=== PATIENT | male | born 2000 | race Caucasian/White ===

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

== ENCOUNTER 2023-05-29 19:46 | Emergency (ER) | payer OTHER, SELFPAY ==
[2023-05-29 19:47] VITALS: BP 135/87; PULSE 121; RESP 16; TEMP 36.6; BMI 23.2
[2023-05-29] MEDS: Penicillin Vk 250 MG Tablet 500 MG PO (20:16)
--- NOTE | 2023-05-29 20:22 | EX.ED.DYSGE1 ---
HPI <MARIA G Cifuentes - Last Filed: 05/29/23 20:38> History of Present Illness Chief Complaint: Dental PFSH <MARIA G Cifuentes - Last Filed: 05/29/23 20:38> PFSH Medical History no medical history Home Medications dicyclomine 10 mg capsule 10 mg PO DAILY 09/03/19 [History Last Taken Unknown] prednisone 10 mg tablet 10 mg PO UD #33 tabs 09/03/19 [Rx Last Taken Unknown] naproxen 500 mg tablet 500 mg PO BID PRN pain #14 tabs 05/29/23 [Rx Last Taken Unknown] penicillin V potassium 500 mg tablet 500 mg PO 4X/DAY #39 tabs 05/29/23 [Rx Last Taken Unknown] Allergy/AdvReac Type Severity Reaction Status Date / Time No Known Allergies Allergy Verified 05/29/23 19:47 Surgical History no surgical history Social History Smoking Status: Never smoker ROS <MARIA G Cifuentes - Last Filed: 05/29/23 20:38> ROS ED Constitutional Constitutional ED: Denies chills or fever(s) Cardiovascular Cardiovascular: Denies chest pain Respiratory/Chest Respiratory/Chest: Denies cough or dyspnea Gastrointestinal Gastrointestinal: Denies abdominal pain, nausea or vomiting Musculoskeletal Musculoskeletal: Denies arthralgias or myalgias Integumentary Denies rash Neurologic Neurologic: Denies weakness EXAM <MARIA G Cifuentes - Last Filed: 05/29/23 20:38> Physical Exam Const Vital Signs: 05/29/23 19:47 05/29/23 19:47 Temperature 97.8 F 97.8 F Temperature Source Temporal Temporal Pulse Rate 121 H 121 H Respiratory Rate 16 16 Blood Pressure 135/87 H 135/87 H Blood Pressure Mean 103 103 Positive well nourished, well developed and no apparent distress General Appearance ED: well developed HEENT Reports normocephalic, head/scalp atraumatic and TM's clear HEENT Narrative: Obvious dental cavity to the right mandibular second molar, no dental abscess, no trismus, uvula midline, posterior pharynx unremarkable Tympanic Membrane ED: Yes TM's clear bilateral Mouth ED: Yes moist mucous membranes normal Eyes PERRL and EOMs intact bilaterally Neck full ROM and supple Chest Wall inspection of chest normal Resp normal respiratory effort and clear to auscultation bilaterally Cardio regular rate and regular rhythm GI soft to palpation, non-tender, non-distended and no masses Back/Spine normal ROM and normal to inspection Extremity normal to inspection and full ROM Neuro oriented x3, CN's II-XII intact bilaterally, moves all extremities, no focal motor deficits and no sensory deficits noted Sensorium / Orientation: awake and alert Psych mental status grossly normal and thought process normal Skin no rashes or lesions noted and no wounds <Dr. Alberto Suazo MD - Last Filed: 05/29/23 22:46> Physical Exam Const Vital Signs: 05/29/23 19:47 05/29/23 19:47 Temperature 97.8 F 97.8 F Temperature Source Temporal Temporal Pulse Rate 121 H 121 H Respiratory Rate 16 16 Blood Pressure 135/87 H 135/87 H Blood Pressure Mean 103 103 [facility] <MARIA G Cifuentes - Last Filed: 05/29/23 20:38> [facility] Narrative Medical decision making narrative: Patient presenting with pain to the right second mandibular molar that he said for the past few days. He does have an obvious cavity to this tooth, no dental abscess, no signs of Ludewig's angina. He is well-appearing and in no acute distress, vitals are unremarkable aside from being tachycardic. He will be given a dose of penicillin here, he does not want anything for pain at this time. He will be given a prescription for penicillin and naproxen and a dental referral sheet. He will be discharged home in stable condition and is comfortable with plan. <Dr. Alberto Suazo MD - Last Filed: 05/29/23 22:46> [facility] Treatment and Re-Evaluation :: I have personally performed a face to face assessment of the patient and have reviewed the BARBY Note. I performed a substantive portion of the visit including all aspects of the following. My burr findings include: History: Patient's been having pain to right lower jaw. He states he has a cavity there. He has not seen a dentist in about 2 years. No drainage fevers or chills. Exam: Patient has obvious cavity. Minimal gum erythema. But no swelling. No sign of Jake's angina. No external swelling. Voice is normal. Handle secretions normally Medical Decision Making: Patient will be given antibiotics and nonsteroidals. Recommend follow-up with dentist. Discharge Plan Triage Chief Complaint: Dental ED Midlevel Provider: Nancy Ann ED Provider: Alberto Suazo Dx/Rx/DC Orders Clinical Impression: Dental cavity, Pain, dental Instructions: ED Dental Cavity Prescriptions: New penicillin V potassium 500 mg tablet 500 mg PO 4X/DAY Qty: 39 0RF naproxen 500 mg tablet 500 mg PO BID PRN (Reason: pain) Qty: 14 0RF No Action prednisone 10 MG tablet 10 mg PO UD Qty: 33 0RF Rx Instructions: Take 4 tablets daily for 3 days, then 3 daily for 3 days, then 2 daily for 3 days, then 1 a day for 3 days then 1 QOD for 3 doses. dicyclomine 10 MG capsule 10 mg PO DAILY Stand Alone Forms: ED Work / School Excuse Primary Care Provider: Care Physician,No Primary Referrals: Care Physician,No Primary [Primary Care Provider] - Activity Restrictions/Additional Instructions: Please follow-up with a dentist and return for worsening of symptoms. Take antibiotic as directed. Disposition Disposition: Home, Self Care Discharge Date/Time: 05/29/23 20:48
--- NOTE | 2023-05-29 21:10 | ED.RN ---
PT'S MOTHER CALLED BACK IN AFTER DISCHARGE REQUESTING WORK EXCUSE FOR TODAY AND TOMORROW. APPROVED, EXCUSE PRINTED AND LEFT AT TRIAGE DESK FOR PT TO OBTAIN.
== END 2023-05-29 20:48 | disposition home or self-care (01) ==
PROVIDERS: Emergency Provider Emergency Medicine; Visit Provider Emergency Medicine
DX: K02.9 Dental caries, unspecified (principal); K08.89 Other specified disorders of teeth and supporting structures
CPT/HCPCS: 99283

== ENCOUNTER 2023-06-27 21:03 | Emergency (ER) | payer OTHER, SELFPAY ==
[2023-06-27 21:03] VITALS: BP 157/80; PULSE 117; RESP 18; TEMP 36.4; O2SAT 100; BMI 22.8
[2023-06-27] MEDS: Famotidine 20 MG Tablet 40 MG PO (21:42)
[2023-06-27] MEDS: predniSONE 20 MG Tablet 60 MG PO (21:42)
--- NOTE | 2023-06-27 22:04 | EDS_ITS ---
HPI History of Present Illness Chief Complaint: Rash Informant: patient Onset/Context/Timing Onset: Yesterday Context: Gradual Onset Narrative Narrative: Patient presents with diffuse hives that started yesterday. He states he first noted lesions near his hands and of spread over all extremities, trunk, and scalp. He denies any new foods, medications, detergents, etc. He has had similar occur in the past and no definitive cause was noted. Patient states symptoms will improve for short time with Benadryl but then returned. He states his breathing feels heavier than normal but he does not feel short of breath. PFSH PFSH Medical History no medical history no medical history Home Medications dicyclomine 10 mg capsule 10 mg PO DAILY 09/03/19 [History Last Taken Unknown] prednisone 10 mg tablet 10 mg PO UD #33 tabs 09/03/19 [Rx Last Taken Unknown] naproxen 500 mg tablet 500 mg PO BID PRN pain #14 tabs 05/29/23 [Rx Last Taken Unknown] penicillin V potassium 500 mg tablet 500 mg PO 4X/DAY #39 tabs 05/29/23 [Rx Last Taken Unknown] prednisone 10 mg tablet 10 mg PO DAILY #48 TABLETS 06/27/23 [Rx Last Taken Unknown] Allergy/AdvReac Type Severity Reaction Status Date / Time No Known Allergies Allergy Verified 05/29/23 19:47 Social History Smoking Status: Never smoker ROS ROS ED Constitutional Constitutional ED: Denies chills or fever(s) Eyes Eyes: Denies discharge from eye(s) ENT ENT ED: Denies discharge from eye(s), rhinorrhea or sore throat Cardiovascular Cardiovascular: Denies chest pain or palpitations Respiratory/Chest Respiratory/Chest: Denies cough or dyspnea Gastrointestinal Gastrointestinal: Denies abdominal pain, nausea or vomiting Genitourinary Genitourinary ED: Denies dysuria Musculoskeletal Musculoskeletal: Denies back pain or extremity pain Integumentary Reports rash; Denies Abrasions Neurologic Neurologic: Denies headache(s) or weakness Psychiatric Psychiatric: Denies anxiety or depression Allergic/Immunologic Allergic/Immunologic ED: Denies lip swelling or urticaria EXAM Physical Exam Const Vital Signs: 06/27/23 21:03 Temperature 97.5 F L Temperature Source Temporal Pulse Rate 117 H Respiratory Rate 18 Blood Pressure 157/80 H Blood Pressure Mean 105 Pulse Ox 100 Oxygen Delivery Method Room Air Positive well nourished and well developed General Appearance ED: well developed HEENT Reports moist mucous membranes Eyes EOMs intact bilaterally Neck no lymphadenopathy Chest Wall inspection of chest normal and palpation of chest normal Resp normal respiratory effort and clear to auscultation bilaterally Cardio regular rate and regular rhythm GI non-tender Palpation: soft Skin Skin Narrative: Urticarial lesions noted along the hairline, upper extremities bilaterally, trunk. No vesicles noted. No sign of secondary infection. MDM MDM MDM Narrative Medical decision making narrative: Patient last took Benadryl about 3 hours ago. He is given a dose of prednisone and Pepcid here. Patient be given a prescription for prednisone. 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 I will write him a work note for today. I will give him referral information for dermatology. Discharge Plan Triage Chief Complaint: Rash ED Provider: Jena Roberts Dx/Rx/DC Orders Clinical Impression: Urticaria Instructions: ED Hives (Adult) Prescriptions: New prednisone 10 mg tablet 10 mg PO DAILY Qty: 48 0RF Rx Instructions: 6 po qd x 3 days, 4 po qd x 3 days, 2 po qd x 3 days, 1 po qd x 3 days No Action prednisone 10 MG tablet 10 mg PO UD Qty: 33 0RF Rx Instructions: Take 4 tablets daily for 3 days, then 3 daily for 3 days, then 2 daily for 3 days, then 1 a day for 3 days then 1 QOD for 3 doses. dicyclomine 10 MG capsule 10 mg PO DAILY penicillin V potassium 500 mg tablet 500 mg PO 4X/DAY Qty: 39 0RF naproxen 500 mg tablet 500 mg PO BID PRN (Reason: pain) Qty: 14 0RF Primary Care Provider: Care Physician,No Primary Referrals: Janna Cardenas MD [Non-Staff] - As Needed Care Physician,No Primary [Primary Care Provider] - Disposition Disposition: Home, Self Care
[2023-06-27 22:28] VITALS: PULSE 90; RESP 18
== END 2023-06-27 22:28 | disposition home or self-care (01) ==
PROVIDERS: Emergency Provider Emergency Medicine; Visit Provider Emergency Medicine
DX: L50.9 Urticaria, unspecified (principal)
CPT/HCPCS: 99283